=== PATIENT | male | born 1985 | race Caucasian/White ===

== ENCOUNTER 2019-02-08 13:10 | Emergency (ER) | payer MEDICAID, OTHER ==
[~2019-02-08] VITALS: Ht 188 cm; Wt 70.0 kg
--- NOTE | 2019-02-08 13:55 | NUR ---
patient states that pain in his lower jaw started yesterday morning in his left lower jaw: no meds, no ice then "a bubble burst" and the pain went into is ear and head he has a broken tooth that he pointed to but no obvious swelling or redness surrounding the tooth patient does not have a dentist or pmd patient given list of medical dentists in the area
[2019-02-08] MEDS ORDERED: AMOX500C2 PO (14:14)
[2019-02-08] MEDS ORDERED: HYDR-3965 PO (14:14)
[2019-02-08 14:27] VITALS: BP 136/81
== END 2019-02-08 14:30 | disposition home or self-care (01) ==
LOC: ER 13:12
DX: S02.5XXA Fracture of tooth (traumatic), initial encounter for closed fracture (principal); Z79.2 Long term (current) use of antibiotics; Z79.899 Other long term (current) drug therapy; X58.XXXA Exposure to other specified factors, initial encounter; Y93.89 Activity, other specified; Y92.89 Other specified places as the place of occurrence of the external cause; Y99.8 Other external cause status
CPT/HCPCS: 99283

== ENCOUNTER 2023-11-03 21:37 | Inpatient (IN) | payer MEDICAID, OTHER ==
[~2023-11-03] VITALS: Ht 190.5 cm; Wt 86.5 kg
[2023-11-03] MEDS ORDERED: iohexol 350MG/ML 100ml bottle IV ONE (23:23)
[2023-11-03 23:29] LABS: HEMOGLOBIN 14.4 g/dl (14.0-17.9); MONOCYTES # (AUTO) 0.8 X10'3 (0-0.9); RED CELL DISTRIBUTION WIDTH 12.6 % (11.5-14.5)
[2023-11-03 23:31] LABS: BASOPHILS % (AUTO) 0.2 % (0-1); EOSINOPHILS % (AUTO) 0 % (0-6); HEMATOCRIT 43.4 % (42.0-52.0); LYMPHOCYTES # (AUTO) 1.1 X10'3 (1.1-4.8); LYMPHOCYTES % (AUTO) 6.6 % (21-51); MEAN CORPUSCULAR HEMOGLOBIN 30.5 PG (27.0-31.0); MEAN CORPUSCULAR HGB CONC 33.3 g/dL (33.0-36.5); MEAN CORPUSCULAR VOLUME 91.8 FL (78-98); MEAN PLATELET VOLUME 10.7 FL (7.4-10.4); MONOCYTES % (AUTO) 4.6 % (2-12); NEUTROPHILS # (AUTO) 15.2 X10'3 (1.8-7.7); NEUTROPHILS % (AUTO) 88.6 % (42-75); PLATELET COUNT 195 X10'3 (140-440); RED BLOOD COUNT 4.72 X10'6 (4.70-6.10); WHITE BLOOD COUNT 17.1 X10'3 (4.5-11.0)
[2023-11-03 23:33] LABS: ABG BASE EXCESS -1.8 mmol/L (-2.0-2.0); ABG HCO3 21.9 mmol/L (22.0-26.0); ABG OXYGEN SATURATION 96.7 % (94-97); ABG PCO2 (T) 34.1 mmHg (35.0-48.0); ABG PH (T) 7.424 (7.340-7.440); ABG PO2 (T) 83.7 mmHg (75.0-100.0); FCOHb 1.3 % (0.0-3.9); FHHb 3.2 % (0.0-5.0); FMetHb 0.3 % (0.0-1.5); FO2Hb 95.2 % (94-97); MODE ROOM AIR; PATIENT TEMPERATURE 36.7; TOTAL HEMOGLOBIN 15.2 G/dl (14.0-17.9)
[2023-11-03 23:46] LABS: ALBUMIN 3.7 G/DL (3.4-5.0); ANION GAP 6 (8-16); BLOOD UREA NITROGEN 8 MG/DL (7-18); BUN/CREATININE RATIO 8.2 (10.0-20.0); CALCIUM 8.4 MG/DL (8.5-10.1); CHLORIDE 106 MMOL/L (99-107); CREATININE 0.97 MG/DL (0.60-1.10); ETHANOL < 10 MG/DL (<10); GLUCOSE 110 MG/DL (70-104); POTASSIUM 3.7 MMOL/L (3.5-5.1); SODIUM 137 MMOL/L (135-145); TOTAL CARBON DIOXIDE 24.8 MMOL/L (24-32); eCRCL 125 ML/MIN; eGFR 87 ML/MIN
[2023-11-03 23:51] LABS: BILIRUBIN,URINE NEGATIVE (Neg); CLARITY,URINE CLEAR (Clear); COLOR,URINE YELLOW (Yellow); GLUCOSE, URINE NEGATIVE (Neg); KETONES,URINE NEGATIVE (Neg); LEUKOCYTE ESTERASE ,URINE NEGATIVE (Neg); NITRITES, URINE NEGATIVE (Neg); OCCULT BLOOD,URINE TRACE-INTACT (Neg); PH,URINE 7.5 (4.8-8.0); PROTEIN,URINE NEGATIVE (Neg); UROBILINOGEN,URINE 0.2 E.U/dL (0.2-1.0)
[2023-11-03 23:53] LABS: UA COLLECTION TYPE CLN CATCH MIDSTREAM
[2023-11-03 23:57] LABS: BACTERIA,URINE NONE SEEN /HPF (Neg); MUCUS STRANDS NONE SEEN /LPF (Neg); SQUAMOUS EPITHELIAL CELL,UR NONE SEEN /LPF (FEW)
[2023-11-03 23:58] LABS: WBC,URINE NONE SEEN /HPF (0-4)
[2023-11-04 00:07] LABS: URINE AMPHETAMINE SCREEN NEGATIVE (Neg); URINE BARBITUATE SCREEN NEGATIVE (Neg); URINE BENZODIAZEPINES SCREEN NEGATIVE (Neg); URINE CANNABINOID SCREEN NEGATIVE (Neg); URINE COCAINE SCREEN NEGATIVE (Neg); URINE METHADONE SCREEN NEGATIVE (Neg); URINE PHENCYCLIDINE SCREEN NEGATIVE (Neg)
[2023-11-04 00:52] LABS: C-REACTIVE PROTEIN 6.29 MG/DL (0.0-0.5)
[2023-11-04 05:22] LABS: GLUCOSE,CSF 68 MG/DL (40-75); TOTAL PROTEIN,CSF 56 MG/DL (15-45)
[2023-11-04] MEDS ORDERED: magnesium 2GM in 50ml NS 50 ML IV PRN (05:25)
[2023-11-04] MEDS ORDERED: magnesium Cl slow-release 64mg tablet PO PRN (05:25)
[2023-11-04] MEDS ORDERED: potassium Cl 20 mEq SR tablet PO PRN ×2 (05:25)
[2023-11-04] MEDS ORDERED: potassium Cl 40MEQ/1/2NS 520ml 520 ML IV PRN (05:25)
[2023-11-04] MEDS ORDERED: magnesium hydroxide 30ml (MOM) UD suspension PO PRN (05:25)
[2023-11-04] MEDS ORDERED: mag hydrox/Alum hydrox/simeth 30ml oral suspension PO PRN (05:25)
[2023-11-04] MEDS ORDERED: magnesium 4gm in 100ml NS 100 ML IV PRN (05:25)
[2023-11-04] MEDS: CefTRIAXone 2gm/D5W 50ml BAG 50 ML IV ONE (05:29)
[2023-11-04 05:31] LABS: APPEARANCE,CSF CLEAR; CSF RBC 1 /CU MM (0); CSF SUPERNATANT COLOR COLORLESS; CSF VOLUME 10 ML; CSF WBC CT 2 /CU MM (0-5); TUBE# COUNTED 4
[2023-11-04] MEDS: K and/or MAG REPLACEMENT MC SCH (08:00)
[2023-11-04] MEDS: docusate sod 100mg capsule PO SCH (08:00)
[2023-11-04 08:23] LABS: MAGNESIUM 1.8 MG/DL (1.5-2.4); POTASSIUM 3.8 MMOL/L (3.5-5.1)
[2023-11-04] MEDS ORDERED: NO HOME MEDS (09:56)
[2023-11-04] MEDS: ketorolac tromethamine 15mg/ml inj. IM ONE (10:07)
[2023-11-04] MEDS: normal saline 1000ml 1,000 ML IV SCH (11:46)
[2023-11-04] MEDS: acetaminophen 325mg tablet PO PRN (13:02)
[2023-11-04 18:00] VITALS: BP 126/55; PULSE 86; RESP 10; TEMP 98.8; O2SAT 98
[2023-11-04] MEDS ORDERED: GADOTERATE MEGLUMINE 7.5 MMOL/15 ML VIAL IV ONE (19:21)
[2023-11-04 20:00] VITALS: RESP 10; O2SAT 100
[2023-11-04] MEDS: diatr meglu/diatrizoate 30ml oral sol.-(3 dose) bottle PO SCH (21:00)
[2023-11-04] MEDS: CefTRIAXone/D5W-Rocephin 1gm 50 ML IV SCH (22:20)
[2023-11-05 06:00] VITALS: BP 110/59; PULSE 62; RESP 19; TEMP 98.4; O2SAT 97
[2023-11-05 06:41] LABS: BASOPHILS % (AUTO) 0.2 % (0-1); EOSINOPHILS % (AUTO) 0.3 % (0-6); HEMATOCRIT 42.1 % (42.0-52.0); LYMPHOCYTES # (AUTO) 1.3 X10'3 (1.1-4.8); LYMPHOCYTES % (AUTO) 12.9 % (21-51); MEAN CORPUSCULAR HEMOGLOBIN 30.7 PG (27.0-31.0); MEAN CORPUSCULAR HGB CONC 33.2 g/dL (33.0-36.5); MEAN CORPUSCULAR VOLUME 92.4 FL (78-98); MEAN PLATELET VOLUME 11.3 FL (7.4-10.4); MONOCYTES # (AUTO) 0.8 X10'3 (0-0.9); MONOCYTES % (AUTO) 8.2 % (2-12); NEUTROPHILS % (AUTO) 78.4 % (42-75); PLATELET COUNT 177 X10'3 (140-440); RED BLOOD COUNT 4.56 X10'6 (4.70-6.10); RED CELL DISTRIBUTION WIDTH 12.8 % (11.5-14.5); WHITE BLOOD COUNT 10.2 X10'3 (4.5-11.0)
[2023-11-05 07:05] LABS: ALANINE AMINOTRANSFERASE 45 U/L (12-78); ALBUMIN/GLOBULIN RATIO 0.9 (1.1-1.5); ALKALINE PHOSPHATASE 73 IU/L (46-116); ANION GAP 8 (8-16); ASPARTATE AMINO TRANSFERASE 25 U/L (10-37); BILIRUBIN,TOTAL 0.3 MG/DL (0.1-1.0); BLOOD UREA NITROGEN 5 MG/DL (7-18); BUN/CREATININE RATIO 5.7 (10.0-20.0); CALCIUM 8.1 MG/DL (8.5-10.1); CHLORIDE 108 MMOL/L (99-107); CREATININE 0.88 MG/DL (0.60-1.10); GLUCOSE 98 MG/DL (70-104); MAGNESIUM 1.6 MG/DL (1.5-2.4); POTASSIUM 3.5 MMOL/L (3.5-5.1); SODIUM 140 MMOL/L (135-145); TOTAL CARBON DIOXIDE 24.1 MMOL/L (24-32); TOTAL PROTEIN 6.3 G/DL (6.4-8.2); eCRCL 137 ML/MIN; eGFR > 90 ML/MIN
[2023-11-05] MEDS: diatr meglu/diatrizoate 30ml oral sol.-(3 dose) bottle PO ONE ×2 (07:13→09:12)
[2023-11-05 10:00] VITALS: BP 112/60; PULSE 58; RESP 14; TEMP 98.1; O2SAT 98
[2023-11-05] MEDS: HYDROmorphone inj. 0.5 MG/0.5 ML DISP.SYRIN IV ONE (13:01)
[2023-11-05] MEDS: metroNIDAZOLE-Flagyl 500mg/NS 100 ML IV SCH (15:46)
[2023-11-05 18:00] VITALS: BP 125/69; PULSE 58; RESP 16; TEMP 97.9; O2SAT 99
[2023-11-05 22:53] VITALS: BP 127/66; PULSE 58; RESP 18; TEMP 97.2; O2SAT 98
[2023-11-06 06:00] VITALS: BP 112/61; PULSE 62; RESP 14; TEMP 97.3; O2SAT 100
[2023-11-06 06:59] LABS: BASOPHILS % (AUTO) 0.4 % (0-1); EOSINOPHILS # (AUTO) 0.2 X10'3 (0-0.9); EOSINOPHILS % (AUTO) 2.5 % (0-6); HEMATOCRIT 41.5 % (42.0-52.0); HEMOGLOBIN 13.7 g/dl (14.0-17.9); LYMPHOCYTES # (AUTO) 1.7 X10'3 (1.1-4.8); LYMPHOCYTES % (AUTO) 23.2 % (21-51); MEAN CORPUSCULAR HEMOGLOBIN 30.6 PG (27.0-31.0); MEAN CORPUSCULAR VOLUME 92.5 FL (78-98); MEAN PLATELET VOLUME 11.4 FL (7.4-10.4); NEUTROPHILS # (AUTO) 4.5 X10'3 (1.8-7.7); NEUTROPHILS % (AUTO) 60.9 % (42-75); PLATELET COUNT 182 X10'3 (140-440); RED BLOOD COUNT 4.49 X10'6 (4.70-6.10); RED CELL DISTRIBUTION WIDTH 12.9 % (11.5-14.5); WHITE BLOOD COUNT 7.4 X10'3 (4.5-11.0)
[2023-11-06 07:16] LABS: ALANINE AMINOTRANSFERASE 46 U/L (12-78); ALBUMIN 2.9 G/DL (3.4-5.0); ALBUMIN/GLOBULIN RATIO 0.9 (1.1-1.5); ALKALINE PHOSPHATASE 81 IU/L (46-116); ANION GAP 5 (8-16); ASPARTATE AMINO TRANSFERASE 24 U/L (10-37); BILIRUBIN,TOTAL 0.3 MG/DL (0.1-1.0); BLOOD UREA NITROGEN 6 MG/DL (7-18); BUN/CREATININE RATIO 6.6 (10.0-20.0); CALCIUM 8.2 MG/DL (8.5-10.1); CHLORIDE 107 MMOL/L (99-107); CREATININE 0.91 MG/DL (0.60-1.10); GLUCOSE 98 MG/DL (70-104); MAGNESIUM 1.8 MG/DL (1.5-2.4); SODIUM 139 MMOL/L (135-145); TOTAL PROTEIN 6.2 G/DL (6.4-8.2); eCRCL 133 ML/MIN; eGFR > 90 ML/MIN
[2023-11-06 07:46] LABS: LARGE PLATELETS FEW; PLATELET ESTIMATE NORMAL
[2023-11-06 11:00] VITALS: BP 129/73; PULSE 61; RESP 16; TEMP 97.2; O2SAT 100
[2023-11-06 18:00] VITALS: BP 122/78; PULSE 59; RESP 20; TEMP 97.7; O2SAT 99
[2023-11-06 20:00] VITALS: RESP 20; O2SAT 99
[2023-11-06] MEDS: dexamethasone 4mg tablet PO ONE (20:12)
[2023-11-06] MEDS: ondansetron/PF 4mg/2ml inj IV PRN (20:18)
[2023-11-06 22:00] VITALS: BP 100/57; PULSE 51; RESP 14; TEMP 97.9; O2SAT 97
[2023-11-07 06:00] VITALS: BP 107/67; PULSE 57; RESP 16; TEMP 97.3; O2SAT 98
[2023-11-07 06:05] LABS: BASOPHILS % (AUTO) 0.2 % (0-1); EOSINOPHILS % (AUTO) 0.1 % (0-6); HEMATOCRIT 44.2 % (42.0-52.0); LYMPHOCYTES # (AUTO) 1.1 X10'3 (1.1-4.8); LYMPHOCYTES % (AUTO) 14.1 % (21-51); MEAN CORPUSCULAR HEMOGLOBIN 31.2 PG (27.0-31.0); MEAN CORPUSCULAR VOLUME 91.6 FL (78-98); MEAN PLATELET VOLUME 11.3 FL (7.4-10.4); MONOCYTES # (AUTO) 0.2 X10'3 (0-0.9); MONOCYTES % (AUTO) 2.3 % (2-12); NEUTROPHILS # (AUTO) 6.5 X10'3 (1.8-7.7); NEUTROPHILS % (AUTO) 83.3 % (42-75); PLATELET COUNT 233 X10'3 (140-440); RED BLOOD COUNT 4.82 X10'6 (4.70-6.10); RED CELL DISTRIBUTION WIDTH 12.7 % (11.5-14.5); WHITE BLOOD COUNT 7.8 X10'3 (4.5-11.0)
[2023-11-07 06:21] LABS: ALANINE AMINOTRANSFERASE 47 U/L (12-78); ALBUMIN 3.3 G/DL (3.4-5.0); ALBUMIN/GLOBULIN RATIO 0.9 (1.1-1.5); ALKALINE PHOSPHATASE 103 IU/L (46-116); ANION GAP 9 (8-16); ASPARTATE AMINO TRANSFERASE 18 U/L (10-37); BILIRUBIN,TOTAL 0.3 MG/DL (0.1-1.0); BLOOD UREA NITROGEN 10 MG/DL (7-18); BUN/CREATININE RATIO 11.4 (10.0-20.0); CHLORIDE 107 MMOL/L (99-107); CREATININE 0.88 MG/DL (0.60-1.10); GLUCOSE 142 MG/DL (70-104); MAGNESIUM 1.9 MG/DL (1.5-2.4); POTASSIUM 4.3 MMOL/L (3.5-5.1); SODIUM 138 MMOL/L (135-145); TOTAL CARBON DIOXIDE 22.4 MMOL/L (24-32); TOTAL PROTEIN 7.1 G/DL (6.4-8.2); eCRCL 137 ML/MIN; eGFR > 90 ML/MIN
[2023-11-07 07:35] VITALS: RESP 18; O2SAT 99
[2023-11-07 08:28] LABS: LARGE PLATELETS FEW; PLATELET ESTIMATE NORMAL
[2023-11-07] MEDS ORDERED: cyclobenzaprine 10mg tablet PO ONE (12:00)
[2023-11-07] MEDS: ibuprofen tablet 400 MG TABLET PO ONE (13:24)
[2023-11-07] MEDS ORDERED: METR-159 PO (14:18)
[2023-11-07] MEDS ORDERED: LEVO-65 PO (14:18)
[2023-11-07] MEDS: dexamethasone 4mg/ml inj IV SCH (14:20)
[2023-11-07] MEDS: cyclobenzaprine 10mg tablet PO ONE (15:01)
[2023-11-07 18:00] VITALS: BP 122/59; PULSE 56; RESP 15; TEMP 98.4; O2SAT 99
[2023-11-07] MEDS: ibuprofen tablet 400 MG TABLET PO SCH (19:29)
[2023-11-07 20:00] VITALS: RESP 16; O2SAT 99
[2023-11-07 22:00] VITALS: BP 122/58; PULSE 57; RESP 18; TEMP 96.7; O2SAT 98
[2023-11-08 06:00] VITALS: BP_SYST 111; BP_SYST 150; BP_DIAS 50; BP_DIAS 66; PULSE 61; PULSE 63; RESP 16; RESP 18; TEMP 96.3; TEMP 97.5; O2SAT 97; O2SAT 99
[2023-11-08 06:22] LABS: BASOPHILS % (AUTO) 0.2 % (0-1); EOSINOPHILS % (AUTO) 0 % (0-6); HEMATOCRIT 43.3 % (42.0-52.0); HEMOGLOBIN 14.2 g/dl (14.0-17.9); LYMPHOCYTES # (AUTO) 1.5 X10'3 (1.1-4.8); LYMPHOCYTES % (AUTO) 7.2 % (21-51); MEAN CORPUSCULAR HEMOGLOBIN 30.1 PG (27.0-31.0); MEAN CORPUSCULAR HGB CONC 32.8 g/dL (33.0-36.5); MEAN CORPUSCULAR VOLUME 91.9 FL (78-98); MEAN PLATELET VOLUME 11.7 FL (7.4-10.4); MONOCYTES # (AUTO) 0.5 X10'3 (0-0.9); MONOCYTES % (AUTO) 2.5 % (2-12); NEUTROPHILS # (AUTO) 18.3 X10'3 (1.8-7.7); NEUTROPHILS % (AUTO) 90.1 % (42-75); PLATELET COUNT 255 X10'3 (140-440); RED BLOOD COUNT 4.71 X10'6 (4.70-6.10); RED CELL DISTRIBUTION WIDTH 12.8 % (11.5-14.5); WHITE BLOOD COUNT 20.3 X10'3 (4.5-11.0)
[2023-11-08 06:38] LABS: ALANINE AMINOTRANSFERASE 39 U/L (12-78); ALBUMIN 3.1 G/DL (3.4-5.0); ALBUMIN/GLOBULIN RATIO 0.9 (1.1-1.5); ALKALINE PHOSPHATASE 88 IU/L (46-116); ANION GAP 10 (8-16); ASPARTATE AMINO TRANSFERASE 13 U/L (10-37); BILIRUBIN,TOTAL 0.3 MG/DL (0.1-1.0); BLOOD UREA NITROGEN 8 MG/DL (7-18); BUN/CREATININE RATIO 9.1 (10.0-20.0); CALCIUM 8.5 MG/DL (8.5-10.1); CHLORIDE 106 MMOL/L (99-107); CREATININE 0.88 MG/DL (0.60-1.10); GLUCOSE 132 MG/DL (70-104); MAGNESIUM 1.7 MG/DL (1.5-2.4); POTASSIUM 3.8 MMOL/L (3.5-5.1); SODIUM 140 MMOL/L (135-145); TOTAL CARBON DIOXIDE 24.3 MMOL/L (24-32); TOTAL PROTEIN 6.6 G/DL (6.4-8.2); eCRCL 137 ML/MIN; eGFR > 90 ML/MIN
[2023-11-08 07:49] LABS: GIANT PLATELET FEW; LARGE PLATELETS FEW; PLATELET ESTIMATE NORMAL
[2023-11-08] MEDS: cyclobenzaprine 10mg tablet PO PRN (08:15)
[2023-11-08 08:16] VITALS: RESP 18; O2SAT 99
[2023-11-08 11:00] VITALS: BP 126/67; PULSE 60; RESP 16; TEMP 97.6; O2SAT 97
[2023-11-08 18:00] VITALS: BP 120/71; PULSE 63; RESP 16; TEMP 98.5; O2SAT 97
[2023-11-08 20:00] VITALS: RESP 16; O2SAT 99
[2023-11-08 22:00] VITALS: BP 133/65; PULSE 58; RESP 14; TEMP 97.2; O2SAT 98
[2023-11-09 06:00] VITALS: BP 116/67; PULSE 52; RESP 16; TEMP 97.5; O2SAT 98
[2023-11-09 06:39] LABS: BASOPHILS % (AUTO) 0.1 % (0-1); EOSINOPHILS % (AUTO) 0 % (0-6); HEMATOCRIT 41.1 % (42.0-52.0); HEMOGLOBIN 13.9 g/dl (14.0-17.9); LYMPHOCYTES # (AUTO) 1.8 X10'3 (1.1-4.8); LYMPHOCYTES % (AUTO) 7.3 % (21-51); MEAN CORPUSCULAR HEMOGLOBIN 30.6 PG (27.0-31.0); MEAN CORPUSCULAR HGB CONC 33.7 g/dL (33.0-36.5); MEAN CORPUSCULAR VOLUME 90.9 FL (78-98); MONOCYTES # (AUTO) 0.8 X10'3 (0-0.9); MONOCYTES % (AUTO) 3.3 % (2-12); NEUTROPHILS % (AUTO) 89.3 % (42-75); PLATELET COUNT 276 X10'3 (140-440); RED BLOOD COUNT 4.53 X10'6 (4.70-6.10); RED CELL DISTRIBUTION WIDTH 12.7 % (11.5-14.5); WHITE BLOOD COUNT 24.7 X10'3 (4.5-11.0)
[2023-11-09 07:01] LABS: ALANINE AMINOTRANSFERASE 37 U/L (12-78); ALBUMIN 3.1 G/DL (3.4-5.0); ALBUMIN/GLOBULIN RATIO 0.9 (1.1-1.5); ALKALINE PHOSPHATASE 82 IU/L (46-116); ANION GAP 7 (8-16); ASPARTATE AMINO TRANSFERASE 12 U/L (10-37); BILIRUBIN,TOTAL 0.3 MG/DL (0.1-1.0); BLOOD UREA NITROGEN 10 MG/DL (7-18); BUN/CREATININE RATIO 11.9 (10.0-20.0); CALCIUM 8.4 MG/DL (8.5-10.1); CHLORIDE 109 MMOL/L (99-107); CREATININE 0.84 MG/DL (0.60-1.10); GLUCOSE 143 MG/DL (70-104); SODIUM 143 MMOL/L (135-145); TOTAL CARBON DIOXIDE 26.8 MMOL/L (24-32); TOTAL PROTEIN 6.4 G/DL (6.4-8.2); eCRCL 144 ML/MIN; eGFR > 90 ML/MIN
[2023-11-09 08:00] VITALS: RESP 18; O2SAT 96
[2023-11-09 10:00] VITALS: BP 131/72; PULSE 62; RESP 15; TEMP 97.3; O2SAT 96
[2023-11-09] MEDS ORDERED: METH4TAB81 PO (11:51)
[2023-11-09] MEDS ORDERED: PANT40SU2 PO (11:51)
== END 2023-11-09 13:00 | disposition home or self-care (01) | DRG 871 ==
LOC: ER 21:37 → ED HOLD 11-04 05:29 → ORTHO 4S 11-04 09:39
PROVIDERS: ADMIT Internal Medicine; ATTEND Internal Medicine
PROC: B3251ZZ Computerized Tomography (CT Scan) of Bilateral Common Carotid Arteries using Low Osmolar Contrast (ICD-10-PCS; 2023-11-03)
PROC: B32G1ZZ Computerized Tomography (CT Scan) of Bilateral Vertebral Arteries using Low Osmolar Contrast (ICD-10-PCS; 2023-11-03)
PROC: B32R1ZZ Computerized Tomography (CT Scan) of Intracranial Arteries using Low Osmolar Contrast (ICD-10-PCS; 2023-11-03)
PROC: B3281ZZ Computerized Tomography (CT Scan) of Bilateral Internal Carotid Arteries using Low Osmolar Contrast (ICD-10-PCS; 2023-11-03)
PROC: 009U3ZZ Drainage of Spinal Canal, Percutaneous Approach (ICD-10-PCS; principal; 2023-11-04)
DX: A41.9 Sepsis, unspecified organism (principal); G93.41 Metabolic encephalopathy; G95.29 Other cord compression; K52.9 Noninfective gastroenteritis and colitis, unspecified; M50.322 Other cervical disc degeneration at C5-C6 level; M54.50 Low back pain, unspecified
CPT/HCPCS: 36415; 36600; 70450; 70496; 70498; 70553; 71045; 72141; 72146; 72148; 74176; 80048; 80053; 80305; 80320; 81001; 82140; 82803; 82945; 83605; 83735; 84132; 84145; 84157; 84484; 85008; 85018; 85025; 85651; 86140; 87015; 87040; 87070; 89051; 93005; 93306; 96365; 97110; 97162; 97530; 97535; 99285; A9575; G0378; J0696; J1100; J1170; J1885; J2405; J3490; J7030; Q9963; Q9967